=== PATIENT | male | born 1965 | race Caucasian/White ===

== ENCOUNTER 2020-10-17 07:28 | Emergency (ER) | payer OTHER, SELFPAY ==
[~2020-10-17] VITALS: Ht 170.2 cm; Wt 88.5 kg
[2020-10-17 07:30] VITALS: BP 151/96; Ht 170.2 cm; Wt 88.5 kg
== END 2020-10-17 08:37 | disposition home or self-care (01) ==
LOC: ED 07:28
DX: U07.1 COVID-19 (principal); Z88.8 Allergy status to other drugs, medicaments and biological substances; Z85.038 Personal history of other malignant neoplasm of large intestine
CPT/HCPCS: U0003

== ENCOUNTER 2020-10-19 19:23 | Inpatient (IN) | payer OTHER, SELFPAY ==
[~2020-10-19] VITALS: Ht 170.2 cm; Wt 88.5 kg
[2020-10-19 19:24] VITALS: Ht 170.2 cm; Wt 88.5 kg
[2020-10-19 20:50] LABS: BASOPHIL % 0.6 % (0.2-1.5); PLATELET COUNT 159 x10^3mcL (152-348); RED CELL DISTRIBUTION WIDTH 14.5 % (12.1-16.2)
[2020-10-19 21:18] LABS: ALKALINE PHOSPHATASE 214 U/L (46-116); ALT/SGPT 48 U/L (16-63); AST/SGOT 86 U/L (15-37); BILIRUBIN TOTAL 0.7 mg/dL (0.20-1.00); CALCIUM 8.2 mg/dL (8.5-10.1); CARBON DIOXIDE 25.2 mmol/L (21-32); CHLORIDE SERUM 97 mmol/L (98-107); CREATININE SERUM 0.9 mg/dL (0.7-1.3); GFR1 > 60 mL/min; GLUCOSE SERUM 153 mg/dL (74-106); SODIUM SERUM 133 mmol/L (136-145); TOTAL PROTEIN, SERUM 7.2 g/dL (6.4-8.2)
[2020-10-19 21:25] LABS: ALBUMIN 2.4 g/dL (3.4-5.0); LACTIC DEHYDROGENASE (LDH) 1124 U/L (100-190)
[2020-10-19 21:26] LABS: POTASSIUM SERUM 2.8 mmol/L (3.5-5.1)
[2020-10-19 21:41] LABS: UA SPECIFIC GRAVITY 1.015 (1.005-1.035); microscopic required? YES; urine erythrocyte 2+ (NEGATIVE)
[2020-10-19 21:59] LABS: C REACTIVE PROTEIN 38.3 mg/dL (<=0.9)
[2020-10-20] MEDS ORDERED: MOTRIN PO (01:47)
[2020-10-20] MEDS ORDERED: ZITHROMAX1 GM/Packe PO (01:49)
[2020-10-20 03:25] VITALS: BP 113/76
[2020-10-20 05:29] VITALS: BP 130/84
[2020-10-20 07:32] LABS: BASOPHIL % 0.1 % (0.2-1.5); PLATELET COUNT 144 x10^3mcL (152-348)
[2020-10-20 07:45] LABS: RED CELL DISTRIBUTION WIDTH 14.6 % (12.1-16.2)
[2020-10-20 08:14] LABS: ALKALINE PHOSPHATASE 189 U/L (46-116); ALT/SGPT 55 U/L (16-63); AST/SGOT 88 U/L (15-37); BILIRUBIN TOTAL 0.6 mg/dL (0.20-1.00); CALCIUM 8.2 mg/dL (8.5-10.1); CHLORIDE SERUM 104 mmol/L (98-107); CREATININE SERUM 0.7 mg/dL (0.7-1.3); GFR1 > 60 mL/min; GLUCOSE SERUM 171 mg/dL (74-106); MAGNESIUM 2.5 mg/dL (1.8-2.4); POTASSIUM SERUM 3.8 mmol/L (3.5-5.1); SODIUM SERUM 140 mmol/L (136-145); TOTAL PROTEIN, SERUM 7.3 g/dL (6.4-8.2)
[2020-10-20 08:40] LABS: ALBUMIN 2.3 g/dL (3.4-5.0)
[2020-10-20 09:51] VITALS: BP 107/80
[2020-10-20 12:42] VITALS: BP 137/92
[2020-10-20 16:51] VITALS: BP 139/86
[2020-10-20 21:08] VITALS: BP 137/87
[2020-10-21 04:46] VITALS: BP 136/87
[2020-10-21 08:13] LABS: BASOPHIL % 0.2 % (0.2-1.5)
[2020-10-21 08:29] LABS: PLATELET COUNT 129 x10^3mcL (152-348); RED CELL DISTRIBUTION WIDTH 14.8 % (12.1-16.2)
[2020-10-21 08:30] VITALS: BP 147/78
[2020-10-21 08:32] LABS: ALKALINE PHOSPHATASE 153 U/L (46-116); ALT/SGPT 89 U/L (16-63); AST/SGOT 111 U/L (15-37); BILIRUBIN TOTAL 0.6 mg/dL (0.20-1.00); CALCIUM 8.2 mg/dL (8.5-10.1); CHLORIDE SERUM 105 mmol/L (98-107); CREATININE SERUM 0.8 mg/dL (0.7-1.3); GFR1 > 60 mL/min; GLUCOSE SERUM 168 mg/dL (74-106); MAGNESIUM 2.8 mg/dL (1.8-2.4); SODIUM SERUM 141 mmol/L (136-145); TOTAL PROTEIN, SERUM 6.9 g/dL (6.4-8.2)
[2020-10-21 08:34] LABS: ALBUMIN 2.3 g/dL (3.4-5.0)
[2020-10-21 12:55] VITALS: BP 142/76
[2020-10-21 17:10] VITALS: BP 139/78
[2020-10-21 22:00] VITALS: BP 144/78
[2020-10-22 06:07] VITALS: BP 144/86
[2020-10-22 08:00] LABS: BASOPHIL % 0.2 % (0.2-1.5)
[2020-10-22 08:26] LABS: ALBUMIN 2.7 g/dL (3.4-5.0); ALKALINE PHOSPHATASE 161 U/L (46-116); ALT/SGPT 111 U/L (16-63); AST/SGOT 92 U/L (15-37); CALCIUM 8.8 mg/dL (8.5-10.1); CARBON DIOXIDE 24.9 mmol/L (21-32); CHLORIDE SERUM 103 mmol/L (98-107); CREATININE SERUM 0.8 mg/dL (0.7-1.3); GFR1 > 60 mL/min; GLUCOSE SERUM 147 mg/dL (74-106); MAGNESIUM 2.8 mg/dL (1.8-2.4); POTASSIUM SERUM 4.4 mmol/L (3.5-5.1); SODIUM SERUM 140 mmol/L (136-145); TOTAL PROTEIN, SERUM 7.8 g/dL (6.4-8.2)
[2020-10-22 08:41] VITALS: BP 149/87
[2020-10-22 10:31] LABS: PLATELET COUNT 111 x10^3mcL (152-348); RED CELL DISTRIBUTION WIDTH 15.1 % (12.1-16.2)
[2020-10-22 11:38] VITALS: BP 131/85
[2020-10-22 16:07] VITALS: BP 124/74
[2020-10-22 20:31] VITALS: BP 121/66
[2020-10-23 05:22] VITALS: BP 114/73
[2020-10-23 08:14] LABS: BASOPHIL % 0.6 % (0.2-1.5)
[2020-10-23 08:53] VITALS: BP 124/70
[2020-10-23 09:09] LABS: PLATELET COUNT 83 x10^3mcL (152-348); RED CELL DISTRIBUTION WIDTH 14.7 % (12.1-16.2)
[2020-10-23 11:53] VITALS: BP 128/71
[2020-10-23 16:27] VITALS: BP 131/86
[2020-10-23 21:16] VITALS: BP 135/91
[2020-10-24 00:18] LABS: ALKALINE PHOSPHATASE 138 U/L (46-116); ALT/SGPT 100 U/L (16-63); AST/SGOT 73 U/L (15-37); BILIRUBIN TOTAL 0.8 mg/dL (0.20-1.00); CALCIUM 8.6 mg/dL (8.5-10.1); CARBON DIOXIDE 26.5 mmol/L (21-32); CHLORIDE SERUM 103 mmol/L (98-107); CREATININE SERUM 0.8 mg/dL (0.7-1.3); GFR1 > 60 mL/min; GLUCOSE SERUM 106 mg/dL (74-106); MAGNESIUM 2.5 mg/dL (1.8-2.4); POTASSIUM SERUM 4.6 mmol/L (3.5-5.1); SODIUM SERUM 141 mmol/L (136-145); TOTAL PROTEIN, SERUM 7.4 g/dL (6.4-8.2)
[2020-10-24 00:34] LABS: ALBUMIN 2.7 g/dL (3.4-5.0)
[2020-10-24 05:23] VITALS: BP 111/63
[2020-10-24 07:53] LABS: ALKALINE PHOSPHATASE 129 U/L (46-116); ALT/SGPT 76 U/L (16-63); AST/SGOT 48 U/L (15-37); BILIRUBIN TOTAL 1.2 mg/dL (0.20-1.00); CALCIUM 8.8 mg/dL (8.5-10.1); CARBON DIOXIDE 24.9 mmol/L (21-32); CHLORIDE SERUM 100 mmol/L (98-107); CREATININE SERUM 0.8 mg/dL (0.7-1.3); GFR1 > 60 mL/min; GLUCOSE SERUM 146 mg/dL (74-106); MAGNESIUM 2.6 mg/dL (1.8-2.4); POTASSIUM SERUM 4.3 mmol/L (3.5-5.1); SODIUM SERUM 136 mmol/L (136-145); TOTAL PROTEIN, SERUM 7.4 g/dL (6.4-8.2)
[2020-10-24 07:59] LABS: BASOPHIL % 0.3 % (0.2-1.5); RED CELL DISTRIBUTION WIDTH 14.3 % (12.1-16.2)
[2020-10-24 08:08] LABS: ALBUMIN 2.5 g/dL (3.4-5.0)
[2020-10-24 09:16] VITALS: BP 123/86
[2020-10-24 10:51] LABS: PLATELET COUNT 85 x10^3mcL (152-348)
[2020-10-24 12:05] VITALS: BP 116/77
[2020-10-24 21:02] VITALS: BP 137/93
[2020-10-25 04:49] VITALS: BP 129/86
[2020-10-25 09:12] VITALS: BP 135/85
[2020-10-25 12:23] VITALS: BP 124/90
[2020-10-25 13:47] LABS: CALCIUM 9.7 mg/dL (8.5-10.1); CHLORIDE SERUM 99 mmol/L (98-107); CREATININE SERUM 0.8 mg/dL (0.7-1.3); GFR1 > 60 mL/min; GLUCOSE SERUM 244 mg/dL (74-106); SODIUM SERUM 134 mmol/L (136-145)
[2020-10-25 13:52] LABS: POTASSIUM SERUM 5.6 mmol/L (3.5-5.1)
[2020-10-25 17:00] VITALS: BP 133/96
[2020-10-25 20:30] VITALS: BP 131/93
[2020-10-26 04:49] VITALS: BP 131/97
[2020-10-26 09:02] VITALS: BP 136/88
[2020-10-26 09:54] LABS: PLATELET COUNT 126 x10^3mcL (152-348); RED CELL DISTRIBUTION WIDTH 14.8 % (12.1-16.2)
[2020-10-26 11:58] LABS: CALCIUM 8.9 mg/dL (8.5-10.1); CARBON DIOXIDE 30.4 mmol/L (21-32); CHLORIDE SERUM 98 mmol/L (98-107); CREATININE SERUM 0.8 mg/dL (0.7-1.3); GFR1 > 60 mL/min; GLUCOSE SERUM 238 mg/dL (74-106); POTASSIUM SERUM 5.3 mmol/L (3.5-5.1); SODIUM SERUM 132 mmol/L (136-145)
[2020-10-26 12:32] LABS: MONOCYTE 1 % (0-7); SEGMENTED NEUTROPHILS 90 % (37-75)
[2020-10-26 12:33] LABS: BAND NEUTROPHIL 2 % (0-10); BASOPHIL 0 % (0-2); rbc morphology (normal/abnorm) ABNORMAL (NORMAL)
[2020-10-26 12:35] VITALS: BP 136/97
[2020-10-26 17:33] VITALS: BP 132/92
[2020-10-26 20:15] VITALS: BP 140/93
[2020-10-27 05:27] VITALS: BP 133/88
[2020-10-27 09:31] VITALS: BP 136/84
[2020-10-27 09:38] LABS: PLATELET COUNT 116 x10^3mcL (152-348); RED CELL DISTRIBUTION WIDTH 14.6 % (12.1-16.2)
[2020-10-27 12:23] VITALS: BP 129/94
[2020-10-27 12:23] LABS: CALCIUM 8.2 mg/dL (8.5-10.1); CARBON DIOXIDE 31.7 mmol/L (21-32); CHLORIDE SERUM 94 mmol/L (98-107); CREATININE SERUM 0.7 mg/dL (0.7-1.3); GFR1 > 60 mL/min; GLUCOSE SERUM 191 mg/dL (74-106); POTASSIUM SERUM 5.3 mmol/L (3.5-5.1); SODIUM SERUM 129 mmol/L (136-145)
[2020-10-27 14:54] LABS: BAND NEUTROPHIL 3 % (0-10); MONOCYTE 6 % (0-7); SEGMENTED NEUTROPHILS 84 % (37-75)
[2020-10-27 14:55] LABS: PLATELET MORPHOLOGY PLATELETS DECREASED; rbc morphology (normal/abnorm) NORMAL (NORMAL)
[2020-10-27 17:15] VITALS: BP 135/91
[2020-10-27 22:02] VITALS: BP 146/93
[2020-10-28 06:38] VITALS: BP 126/70
[2020-10-28 09:40] VITALS: BP 131/87
[2020-10-28 09:54] LABS: PLATELET COUNT 147 x10^3mcL (152-348); RED CELL DISTRIBUTION WIDTH 14.4 % (12.1-16.2)
[2020-10-28 10:10] LABS: CALCIUM 8.9 mg/dL (8.5-10.1); CARBON DIOXIDE 32.1 mmol/L (21-32); CHLORIDE SERUM 93 mmol/L (98-107); CREATININE SERUM 0.7 mg/dL (0.7-1.3); GFR1 > 60 mL/min; GLUCOSE SERUM 181 mg/dL (74-106); POTASSIUM SERUM 4.6 mmol/L (3.5-5.1); SODIUM SERUM 133 mmol/L (136-145)
[2020-10-28 10:50] LABS: C REACTIVE PROTEIN 21.2 mg/dL (<=0.9)
[2020-10-28 13:32] VITALS: BP 138/90
[2020-10-28 14:57] LABS: MONOCYTE 2 % (0-7); SEGMENTED NEUTROPHILS 92 % (37-75)
[2020-10-28 14:58] LABS: rbc morphology (normal/abnorm) NORMAL (NORMAL)
[2020-10-28 16:08] VITALS: BP 131/88
[2020-10-28 16:09] VITALS: BP 131/88
[2020-10-28 20:14] VITALS: BP 133/85
[2020-10-29 04:34] VITALS: BP 135/86
[2020-10-29 08:05] LABS: CARBON DIOXIDE 32.1 mmol/L (21-32); CHLORIDE SERUM 95 mmol/L (98-107); CREATININE SERUM 0.7 mg/dL (0.7-1.3); GFR1 > 60 mL/min; GLUCOSE SERUM 164 mg/dL (74-106); SODIUM SERUM 134 mmol/L (136-145)
[2020-10-29 08:37] VITALS: BP 134/88
[2020-10-29 10:52] LABS: RED CELL DISTRIBUTION WIDTH 14.4 % (12.1-16.2)
[2020-10-29 10:53] LABS: PLATELET COUNT 143 x10^3mcL (152-348)
[2020-10-29 11:38] LABS: ATYPICAL LYMPH 0 %; BAND NEUTROPHIL 3 % (0-10); BASOPHIL 0 % (0-2); MONOCYTE 5 % (0-7); SEGMENTED NEUTROPHILS 87 % (37-75); rbc morphology (normal/abnorm) NORMAL (NORMAL)
[2020-10-29 11:44] VITALS: BP 133/84
[2020-10-29 16:57] VITALS: BP 138/88
[2020-10-29 21:48] VITALS: BP 133/83
[2020-10-30 04:55] VITALS: BP 133/86
[2020-10-30 07:30] LABS: PLATELET COUNT 163 x10^3mcL (152-348); RED CELL DISTRIBUTION WIDTH 14.5 % (12.1-16.2)
[2020-10-30 08:22] LABS: ALKALINE PHOSPHATASE 127 U/L (46-116); ALT/SGPT 136 U/L (16-63); AST/SGOT 51 U/L (15-37); BILIRUBIN TOTAL 0.8 mg/dL (0.20-1.00); CALCIUM 8.5 mg/dL (8.5-10.1); CARBON DIOXIDE 32.3 mmol/L (21-32); CHLORIDE SERUM 94 mmol/L (98-107); CREATININE SERUM 0.6 mg/dL (0.7-1.3); GFR1 > 60 mL/min; GLUCOSE SERUM 150 mg/dL (74-106); POTASSIUM SERUM 4.3 mmol/L (3.5-5.1); SODIUM SERUM 133 mmol/L (136-145)
[2020-10-30 08:24] LABS: C REACTIVE PROTEIN 17.3 mg/dL (<=0.9)
[2020-10-30 08:29] VITALS: BP 126/85
[2020-10-30 12:13] VITALS: BP 118/80
[2020-10-30 13:46] LABS: BAND NEUTROPHIL 9 % (0-10); BASOPHIL 0 % (0-2); MONOCYTE 2 % (0-7); SEGMENTED NEUTROPHILS 87 % (37-75)
[2020-10-30 13:48] LABS: PLATELET MORPHOLOGY GIANT PLATELET SEEN; rbc morphology (normal/abnorm) ABNORMAL (NORMAL); tear drop cell (dacryocyte) 1+
[2020-10-30 13:49] LABS: burr cell (echinocyte) 1+
[2020-10-30 15:53] VITALS: BP 123/85
[2020-10-30 21:00] VITALS: BP 127/72
[2020-10-31 05:09] VITALS: BP 121/73
[2020-10-31 07:41] LABS: PLATELET COUNT 176 x10^3mcL (152-348)
[2020-10-31 08:12] LABS: ALKALINE PHOSPHATASE 136 U/L (46-116); ALT/SGPT 176 U/L (16-63); AST/SGOT 61 U/L (15-37); BILIRUBIN TOTAL 0.6 mg/dL (0.20-1.00); CARBON DIOXIDE 32.8 mmol/L (21-32); CHLORIDE SERUM 99 mmol/L (98-107); CREATININE SERUM 0.6 mg/dL (0.7-1.3); GFR1 > 60 mL/min; GLUCOSE SERUM 153 mg/dL (74-106); POTASSIUM SERUM 4.1 mmol/L (3.5-5.1); SODIUM SERUM 135 mmol/L (136-145); TOTAL PROTEIN, SERUM 6.4 g/dL (6.4-8.2)
[2020-10-31 08:14] LABS: ALBUMIN 1.9 g/dL (3.4-5.0)
[2020-10-31 08:15] LABS: RED CELL DISTRIBUTION WIDTH 14.6 % (12.1-16.2)
[2020-10-31 09:09] VITALS: BP 124/84
[2020-10-31 12:11] VITALS: BP 130/78
[2020-10-31 12:59] LABS: SEGMENTED NEUTROPHILS 84 % (37-75)
[2020-10-31 13:00] LABS: BAND NEUTROPHIL 3 % (0-10); BASOPHIL 0 % (0-2); MONOCYTE 5 % (0-7)
[2020-10-31 13:01] LABS: rbc morphology (normal/abnorm) NORMAL (NORMAL)
[2020-10-31 17:26] VITALS: BP 120/81
[2020-10-31 21:07] VITALS: BP 103/70
[2020-11-01 05:18] VITALS: BP 108/70
[2020-11-01 06:41] LABS: PLATELET COUNT 214 x10^3mcL (152-348)
[2020-11-01 07:44] LABS: RED CELL DISTRIBUTION WIDTH 14.7 % (12.1-16.2)
[2020-11-01 08:52] LABS: ALKALINE PHOSPHATASE 139 U/L (46-116); ALT/SGPT 268 U/L (16-63); AST/SGOT 82 U/L (15-37); BILIRUBIN TOTAL 0.52 mg/dL (0.20-1.00); CALCIUM 8.8 mg/dL (8.5-10.1); CARBON DIOXIDE 26.9 mmol/L (21-32); CHLORIDE SERUM 98 mmol/L (98-107); CREATININE SERUM 0.7 mg/dL (0.7-1.3); GFR1 > 60 mL/min; GLUCOSE SERUM 141 mg/dL (74-106); POTASSIUM SERUM 4.1 mmol/L (3.5-5.1); SODIUM SERUM 136 mmol/L (136-145); TOTAL PROTEIN, SERUM 6.9 g/dL (6.4-8.2)
[2020-11-01 09:00] VITALS: BP 121/77
[2020-11-01 12:13] LABS: MONOCYTE 1 % (0-7); SEGMENTED NEUTROPHILS 80 % (37-75); rbc morphology (normal/abnorm) NORMAL (NORMAL)
[2020-11-01 12:28] VITALS: BP 132/79
[2020-11-01] MEDS ORDERED: ZINC SULFATE220 MG PO (14:59)
[2020-11-01] MEDS ORDERED: VITC PO (15:00)
[2020-11-01] MEDS ORDERED: ELIQUIS5 MG PO (15:00)
[2020-11-01] MEDS ORDERED: DECADRON4 MG PO (15:01)
[2020-11-01 16:53] VITALS: BP 133/87
[2020-11-01 20:54] VITALS: BP 131/80
[2020-11-02 04:38] VITALS: BP 112/78
[2020-11-02 08:40] VITALS: BP 130/83
[2020-11-02 08:40] LABS: PLATELET COUNT 224 x10^3mcL (152-348)
[2020-11-02 08:45] LABS: RED CELL DISTRIBUTION WIDTH 14.9 % (12.1-16.2)
[2020-11-02 08:47] LABS: BAND NEUTROPHIL 3 % (0-10); MONOCYTE 2 % (0-7); PLATELET MORPHOLOGY PLATELETS NORMAL; SEGMENTED NEUTROPHILS 83 % (37-75); rbc morphology (normal/abnorm) NORMAL (NORMAL)
[2020-11-02 08:51] LABS: ALKALINE PHOSPHATASE 154 U/L (46-116); ALT/SGPT 271 U/L (16-63); AST/SGOT 69 U/L (15-37); BILIRUBIN TOTAL 0.5 mg/dL (0.20-1.00); CALCIUM 7.9 mg/dL (8.5-10.1); CARBON DIOXIDE 27.7 mmol/L (21-32); CHLORIDE SERUM 98 mmol/L (98-107); CREATININE SERUM 0.7 mg/dL (0.7-1.3); GFR1 > 60 mL/min; GLUCOSE SERUM 138 mg/dL (74-106); POTASSIUM SERUM 3.6 mmol/L (3.5-5.1); SODIUM SERUM 134 mmol/L (136-145); TOTAL PROTEIN, SERUM 6.6 g/dL (6.4-8.2)
[2020-11-02 12:06] VITALS: BP 129/83
[2020-11-02 16:46] VITALS: BP 119/80
[2020-11-02 21:10] VITALS: BP 128/86
[2020-11-03 05:30] VITALS: BP 107/73
[2020-11-03 06:45] LABS: PLATELET COUNT 202 x10^3mcL (152-348)
[2020-11-03 07:02] LABS: RED CELL DISTRIBUTION WIDTH 14.6 % (12.1-16.2)
[2020-11-03 07:40] LABS: ALKALINE PHOSPHATASE 142 U/L (46-116); ALT/SGPT 250 U/L (16-63); AST/SGOT 43 U/L (15-37); BILIRUBIN TOTAL 0.42 mg/dL (0.20-1.00); CALCIUM 8.5 mg/dL (8.5-10.1); CARBON DIOXIDE 29.1 mmol/L (21-32); CHLORIDE SERUM 100 mmol/L (98-107); CREATININE SERUM 0.7 mg/dL (0.7-1.3); GFR1 > 60 mL/min; GLUCOSE SERUM 132 mg/dL (74-106); POTASSIUM SERUM 3.9 mmol/L (3.5-5.1); SODIUM SERUM 136 mmol/L (136-145); TOTAL PROTEIN, SERUM 6.4 g/dL (6.4-8.2)
[2020-11-03 07:41] LABS: ALBUMIN 1.9 g/dL (3.4-5.0)
[2020-11-03 08:45] LABS: BAND NEUTROPHIL 9 % (0-10); METAMYELOCTE 2 % (0-2); MONOCYTE 5 % (0-7); MYELOCYTE 4 % (0-2); SEGMENTED NEUTROPHILS 77 % (37-75); rbc morphology (normal/abnorm) ABNORMAL (NORMAL)
[2020-11-03 08:46] LABS: PLATELET MORPHOLOGY LARGE PLATELET SEEN
[2020-11-03 08:47] VITALS: BP 127/73
[2020-11-03 12:42] VITALS: BP 119/84
[2020-11-03 17:33] VITALS: BP 117/74
[2020-11-03 21:43] VITALS: BP 114/73
[2020-11-04 05:38] VITALS: BP 120/82
[2020-11-04 08:27] VITALS: BP 109/66
[2020-11-04 09:19] LABS: PLATELET COUNT 245 x10^3mcL (152-348)
[2020-11-04 09:27] LABS: RED CELL DISTRIBUTION WIDTH 14.8 % (12.1-16.2)
[2020-11-04 11:45] LABS: BAND NEUTROPHIL 3 % (0-10); MONOCYTE 5 % (0-7); PLATELET MORPHOLOGY PLATELETS NORMAL; SEGMENTED NEUTROPHILS 82 % (37-75); rbc morphology (normal/abnorm) NORMAL (NORMAL)
[2020-11-04 12:11] VITALS: BP 119/75
[2020-11-04 15:52] VITALS: BP 115/71
== END 2020-11-04 16:27 | disposition home or self-care (01) | DRG 137 ==
LOC: ED 19:23 → DU 22:45
PROVIDERS: Emergency Medicine; Hospitalist; ADMIT Internal Medicine; ATTEND Internal Medicine
PROC: 02HV33Z Insertion of Infusion Device into Superior Vena Cava, Percutaneous Approach (ICD-10-PCS; principal; 2020-10-20)
PROC: B548ZZA Ultrasonography of Superior Vena Cava, Guidance (ICD-10-PCS; 2020-10-20)
PROC: XW033E5 Introduction of Remdesivir Anti-infective into Peripheral Vein, Percutaneous Approach, New Technology Group 5 (ICD-10-PCS; 2020-10-20)
PROC: XW13325 Transfusion of Convalescent Plasma (Nonautologous) into Peripheral Vein, Percutaneous Approach, New Technology Group 5 (ICD-10-PCS; 2020-10-21)
DX: U07.1 COVID-19 (principal); J96.01 Acute respiratory failure with hypoxia; J12.82 Pneumonia due to coronavirus disease 2019; Z88.3 Allergy status to other anti-infective agents; Z85.038 Personal history of other malignant neoplasm of large intestine
CPT/HCPCS: 36600; 83880; 85378; 87804; G0378; J0456; J0696; J1100; J7040; J7050; J7060; J8540

== ENCOUNTER 2020-11-27 11:14 | Emergency (ER) | payer OTHER, SELFPAY ==
[~2020-11-27] VITALS: Ht 170.2 cm; Wt 79.4 kg
[~2020-11-27 11:14] MED LIST: DECADRON4 MG PO; ELIQUIS5 MG PO; MOTRIN PO; VITC PO; ZINC SULFATE220 MG PO; ZITHROMAX1 GM/Packe PO
[2020-11-27 11:17] VITALS: Ht 170.2 cm; Wt 79.4 kg
[2020-11-27 12:08] LABS: BASOPHIL % 1.1 % (0.2-1.5)
[2020-11-27 12:10] LABS: PLATELET COUNT 583 x10^3mcL (152-348); RED CELL DISTRIBUTION WIDTH 16.4 % (12.1-16.2)
[2020-11-27 12:17] LABS: CALCIUM 9.1 mg/dL (8.5-10.1); CARBON DIOXIDE 25.6 mmol/L (21-32); CHLORIDE SERUM 102 mmol/L (98-107); CREATININE SERUM 0.8 mg/dL (0.7-1.3); GFR1 > 60 mL/min; GLUCOSE SERUM 180 mg/dL (74-106); POTASSIUM SERUM 3.5 mmol/L (3.5-5.1); SODIUM SERUM 138 mmol/L (136-145)
[2020-11-27 12:21] LABS: ALKALINE PHOSPHATASE 121 U/L (46-116); ALT/SGPT 49 U/L (16-63); AST/SGOT 23 U/L (15-37); BILIRUBIN TOTAL 0.3 mg/dL (0.20-1.00); C REACTIVE PROTEIN 7.3 mg/dL (<=0.9); LACTIC DEHYDROGENASE (LDH) 464 U/L (100-190); TOTAL PROTEIN, SERUM 7.9 g/dL (6.4-8.2)
[2020-11-27 12:22] LABS: ALBUMIN 2.5 g/dL (3.4-5.0)
[2020-11-27 12:55] VITALS: BP 126/87
[2020-11-27 13:15] LABS: microscopic required? YES; urine erythrocyte NEGATIVE (NEGATIVE)
== END 2020-11-27 13:22 | disposition home or self-care (01) ==
LOC: ED 11:14
PROVIDERS: Specialist
DX: J18.9 Pneumonia, unspecified organism (principal); R09.02 Hypoxemia; Z90.49 Acquired absence of other specified parts of digestive tract; Z91.041 Radiographic dye allergy status
CPT/HCPCS: 36600; 83880; 85378; 87804